=== PATIENT | male | born 1980 | race Native Hawaiian/Other Pacific Islander ===

== ENCOUNTER 2020-01-07 12:11 | Emergency (ER) | payer SELFPAY ==
[2020-01-07 13:22] VITALS: BP 137/89
--- NOTE | 2020-01-07 13:23 | Event Note ---
ED Screening Note Date of service: 01/07/20 Time: 13:22 ED Screening Note: c/o left foot pain after stepping on nail x 2 days states redness and swelling not upto date on tetanus This initial assessment/diagnostic orders/clinical plan/treatment(s) is/are subject to change based on patients health status, clinical progression and re- assessment by fellow clinical providers in the ED. Further treatment and workup at subsequent clinical providers discretion. Patient/guardian urged not to elope from the ED as their condition may be serious if not clinically assessed and managed. Initial orders include: XR
[2020-01-07] MEDS ORDERED: TETANUS,DIPH,PERTUSS(ACELL) VACCINE 0.5 ML SYRINGE IM ONE ×2 (13:24→17:17)
--- NOTE | 2020-01-07 13:51 | XRay Report ---
EXAMINATION: Left foot radiograph, 3 views CLINICAL INFORMATION: Left foot pain and swelling. Stepped on a nail 2 days ago. COMPARISON: None. FINDINGS: There is suspected focal soft tissue swelling at the base of the fifth digit. No definite s ubcutaneous gas or radiodense foreign body is clearly visualized. No acute bony abnormality is seen. IMPRESSION: Soft tissue swelling at the base of the fifth digit. Signer Name: Brionna Hernandes MD Signed: 01/07/2020 1:46 PM Workstation Name: [id number]
--- NOTE | 2020-01-07 17:10 | Emergency Department Report ---
ED General Adult HPI - General Chief complaint: Extremity Injury, Lower Stated complaint: LT FOOT INJURY Time Seen by Provider: 01/07/20 13:22 Source: patient Mode of arrival: Ambulatory Limitations: Language Barrier - History of Present Illness Initial comments: This is a 39-year-old male presents the ED complaining of left foot pain after stepping on nail 2 days ago. Patient states he was at work when he accidentally stepped on a will nail. Patient states he had shoes on when the incident occurred. Patient denies any bleeding swelling to the area. Patient states that it was a will nail about 2 inches long. - Related Data Previous Rx's Medication Instructions Recorded Last Taken Type Amoxicillin [Amoxicillin TAB] 875 mg PO BID #14 tablet 01/07/20 Unknown Rx Ciprofloxacin HCl [Ciprofloxacin 500 mg PO Q12HR #14 tab 01/07/20 Unknown Rx TAB] Ibuprofen [Motrin] 800 mg PO Q8HR #30 tablet 01/07/20 Unknown Rx Allergies Allergy/AdvReac Type Severity Reaction Status Date / Time No Known Allergies Allergy Unverified 01/07/20 12:37 ED Review of Systems ROS: Stated complaint: LT FOOT INJURY Other details as noted in HPI Comment: All other systems reviewed and negative ED Past Medical Hx - Past Medical History Previous Medical History?: No - Surgical History Past Surgical History?: No - Social History Smoking Status: Former Smoker Substance Use Type: Alcohol - Medications Home Medications: Home Medications Medication Instructions Recorded Confirmed Last Taken Type Amoxicillin [Amoxicillin TAB] 875 mg PO BID #14 tablet 01/07/20 Unknown Rx Ciprofloxacin HCl [Ciprofloxacin 500 mg PO Q12HR #14 tab 01/07/20 Unknown Rx TAB] Ibuprofen [Motrin] 800 mg PO Q8HR #30 tablet 01/07/20 Unknown Rx ED Physical Exam - General Limitations: Language Barrier General appearance: alert, in no apparent distress - Head Head exam: Present: atraumatic, normocephalic - Eye Eye exam: Present: normal appearance - ENT ENT exam: Present: mucous membranes moist - Neck Neck exam: Present: normal inspection - Respiratory Respiratory exam: Present: normal lung sounds bilaterally. Absent: respiratory distress - Cardiovascular Cardiovascular Exam: Present: regular rate, normal rhythm. Absent: systolic murmur, diastolic murmur, rubs, gallop - GI/Abdominal GI/Abdominal exam: Present: soft, normal bowel sounds - Rectal Rectal exam: Present: deferred - Extremities Exam Extremities exam: Present: normal inspection, full ROM, other (Small puncture wound noted on left foot). Absent: tenderness, normal capillary refill, pedal edema, joint swelling, calf tenderness - Back Exam Back exam: Present: normal inspection - Neurological Exam Neurological exam: Present: alert, oriented X3 - Psychiatric Psychiatric exam: Present: normal affect, normal mood - Skin Skin exam: Present: warm, dry, intact, normal color. Absent: rash ED Course Vital Signs 01/07/20 01/07/20 12:38 13:22 Temperature 98.6 F 98.6 F Pulse Rate 84 85 Respiratory 16 16 Rate Blood Pressure 137/89 137/89 O2 Sat by Pulse 99 99 Oximetry ED Medical Decision Making - Radiology Data Radiology results: report reviewed, image reviewed Fluoro Time In Minutes: EXAMINATION: Left foot radiograph, 3 views CLINICAL INFORMATION: Left foot pain and swelling. Stepped on a nail 2 days ago. COMPARISON: None. FINDINGS: There is suspected focal soft tissue swelling at the base of the fifth digit. No definite subcutaneous gas or radiodense foreign body is clearly visualized. No acute bony abnormality is seen. IMPRESSION: Soft tissue swelling at the base of the fifth digit. Signer Name: Brionna Hernandes MD Signed: 01/07/2020 1:46 PM Workstation Name: [id number] Transcribed By: EB Dictated By: Brionna Hernandes MD Electronically Authenticated By: Brionna Hernandes MD Signed Date/Time: 01/07/20 1346 - Medical Decision Making 39-year-old male presents with puncture wound of the left foot. Patient received tetanus booster in the ED. Patient received antibiotics for puncture wound. Vital signs are normal patient is in no acute distress. Discussed x-ray findings with the patient. X-ray report as written above. Discussed with patient to follow-up with primary care physician 3 to 5 days. Critical care attestation.: If time is entered above; I have spent that time in minutes in the direct care of this critically ill patient, excluding procedure time. ED Disposition Clinical Impression: Puncture wound Disposition: [id number] TO HOME OR SELFCARE Is pt being admited?: No Does the pt Need Aspirin: No Condition: Stable Instructions: Puncture Wound (ED) Additional Instructions: Make sure to follow up with the primary care physician as discussed. Take all your medications as you've been prescribed. If you have any worsening symptoms or develop new symptoms please return to ED immediately. Prescriptions: Amoxicillin [Amoxicillin TAB] 875 mg PO BID #14 tablet Ciprofloxacin HCl [Ciprofloxacin TAB] 500 mg PO Q12HR #14 tab Ibuprofen [Motrin] 800 mg PO Q8HR #30 tablet Referrals: PRIMARY CARE, [Primary Care Provider] - 3-5 Days [facility] [Outside] - 3-5 Days [facility] [Outside] - 3-5 Days Forms: Work/School Release Form(ED) Time of Disposition: 17:13
== END 2020-01-07 17:38 | disposition home or self-care (01) ==
LOC: ED 12:11
DX: S91.332A Puncture wound without foreign body, left foot, initial encounter (principal); W22.8XXA Striking against or struck by other objects, initial encounter; Y93.89 Activity, other specified; Y92.89 Other specified places as the place of occurrence of the external cause; Y99.8 Other external cause status
CPT/HCPCS: 90471; 90715